=== PATIENT | male | born 1990 | race Caucasian/White ===

== ENCOUNTER → 2018-12-04 | Outpatient (CLI) | payer OTHER ==
[2018-12-04 10:22] LABS: HEMATOCRIT 43.9 % (42.0-52.0); HEMOGLOBIN 14.7 g/dL (13.5-18.0); MEAN PLATELET VOLUME 9.5 fl (7.4-10.4); RED BLOOD COUNT 5.07 M/mm3 (4.20-5.60); RED CELL DISTRIBUTION WIDTH 12.9 % (11.5-14.5); WHITE BLOOD COUNT 4.7 K/mm3 (4.8-10.8)
[2018-12-04 10:39] LABS: ALBUMIN 4.9 g/dL (3.5-5.0); CALCIUM 9.8 mg/dL (8.4-10.2); POTASSIUM 3.9 mmol/L (3.6-5.0); TOTAL BILIRUBIN 0.7 mg/dL (0.2-1.3); TOTAL PROTEIN 7.7 g/dL (6.3-8.2)
[2018-12-05 00:46] LABS: CORTISOL, AM (0800) 12 ug/dL (3-20)
[2018-12-05 02:30] LABS: ESTRADIOL 37 pg/mL (11-44)
[2018-12-05 02:47] LABS: INSULIN 3 uIU/mL (2-23)
== END ==
LOC: LAB 09:57
DX: R53.83 Other fatigue (principal)